=== PATIENT | male | born 1970 | race Caucasian/White ===

== ENCOUNTER → 2016-11-07 | Outpatient (CLI) | payer BC ==
--- NOTE | 2016-11-08 07:56 | US ---
EXAMINATION TYPE: US thyroid st tissue head/neck DATE OF EXAM: 11/07/2016 6:05 PM COMPARISON: NONE CLINICAL HISTORY: Dysphagia R47.02 Neck pain M54.2. Dysphagia. Patient states having a family hx of enlarged thyroids GLAND SIZE: Right Lobe: 4.5 x 1.6 x 1.0 cm Overall Parenchyma: homogenous Left Lobe: 4.8 x 1.6 x 1.3 cm Overall Parenchyma: homogeneous Isthmus Thickness: 0.2 cm NODULES RIGHT: # of nodules measured on right: 0 LEFT: # of nodules measured on left: 0 ISTHMUS: # of nodules measured in the isthmus: 0 Bilateral neck scanned, no evidence of lymphadenopathy. No nodules seen bilaterally IMPRESSION: No distinct abnormality identified.
== END | disposition home or self-care (01) ==
LOC: RADUSMAIN 17:37
PROVIDERS: ATTEND Family Medicine
DX: M54.2 Cervicalgia (principal); R47.02 Dysphasia
CPT/HCPCS: 76536

== ENCOUNTER → 2020-10-19 | Outpatient (CLI) | payer BC ==
--- NOTE | 2020-10-19 12:59 | XR ---
EXAMINATION TYPE: XR chest 2V DATE OF EXAM: 10/19/2020 COMPARISON: NONE TECHNIQUE: PA and lateral views submitted. HISTORY: Pulmonary fibrosis FINDINGS: The lungs are clear and there is no pneumothorax, pleural effusion, or focal pneumonia. Heart size normal. No overt failure. Biapical pleural thickening. Chronic left navicular deformity. IMPRESSION: 1. No acute process.
== END | disposition home or self-care (01) ==
LOC: RADXRMAIN 12:46
PROVIDERS: ATTEND Family Medicine
DX: J84.10 Pulmonary fibrosis, unspecified (principal)
CPT/HCPCS: 71046

== ENCOUNTER 2020-12-29 09:31 | Day surgery (SDC) | payer BC ==
[2020-12-25 13:28] VITALS: BMI 25.1
[~2020-12-29 09:31] MED LIST: LACTATED RINGERS 1,000 ML IV SCH; LIDOCAINE 1% (10MG/ML) FOR IV START INTRADERMA PRN
[2020-12-29 10:40] VITALS: RESP 16; TEMP 97.9
[2020-12-29] MEDS ORDERED: PROPOFOL 10 MG/ML 20 ML VIAL IV ONE (11:08)
--- NOTE | 2020-12-29 11:10 | P.GSHP ---
History of Present Illness H&P Date: 12/29/20 Chief Complaint: screening Patient here today for colonoscopy. He has not had 1 previously. No bowel related complaints. No family history of colon cancer. Past Medical History Past Medical History: Asthma, Hypertension Additional Past Medical History / Comment(s): Asthma as child. History of Any Multi-Drug Resistant Organisms: None Reported Additional Past Surgical History / Comment(s): wisdom teeth as teen Past Anesthesia/Blood Transfusion Reactions: No Reported Reaction Smoking Status: Never smoker - Past Family History Mother Family Medical History: Cancer Additional Family Medical History / Comment(s): basal cell cancers Medications and Allergies Home Medications Medication Instructions Recorded Confirmed Type Hydrochlorothiazide 12.5 mg PO DAILY 12/25/20 12/29/20 History [hydroCHLOROthiazide] Loratadine [Claritin] 10 mg PO DAILY PRN 12/25/20 12/29/20 History Losartan Potassium [Cozaar] 100 mg PO DAILY 12/25/20 12/29/20 History Allergies Allergy/AdvReac Type Severity Reaction Status Date / Time No Known Allergies Allergy Verified 12/29/20 10:28 Surgical - Exam Vital Signs Temp Pulse Resp BP Pulse Ox 97.9 F 56 L 16 154/81 99 12/29/20 10:25 12/29/20 10:25 12/29/20 10:25 12/29/20 10:25 12/29/20 10:25 Physical exam: General: Well-developed, well-nourished HEENT: Normocephalic, sclerae nonicteric Abdomen: Nontender, nondistended Extremities: No edema Neuro: Alert and oriented Assessment and Plan (1) Colon cancer screening Narrative/Plan: Will proceed with colonoscopy Current Visit: Yes Status: Acute Code(s): Z12.11 - ENCOUNTER FOR SCREENING FOR MALIGNANT NEOPLASM OF COLON SNOMED Code(s): 555211493
--- NOTE | 2020-12-29 11:25 | P.PCN ---
Date of Procedure: 12/29/20 Procedure(s) Performed: PREOPERATIVE DIAGNOSIS: Colon cancer screening POSTOPERATIVE DIAGNOSIS: Normal exam PROCEDURE: Colonoscopy ANESTHESIA: MAC SURGEON: Kyle Walker M.D. SPECIMENS: None ENDOSCOPIC PROCEDURE: The patient was placed on the endoscopy table in the left decubitus position. The Olympus colonoscope was inserted into the anus and passed under direct visualization to the base of the cecum. The appendiceal orifice was visualized. From that point the scope was slowly withdrawn inspecti ng all surfaces carefully. There were no neoplastic inflammatory or polypoid lesions throughout the cecum, ascending, transverse, descending, sigmoid and rectum. There was no visible diverticulosis noted. Digital rectal examination was normal. The patient was taken to the recovery room in stable condition per anesthesia guidelines. RECOMMENDATIONS: Resume diet. Follow-up colonoscopy 10 years.
[2020-12-29 11:52] VITALS: BP 123/80; PULSE 55
== END 2020-12-29 12:32 | disposition home or self-care (01) ==
LOC: ORWHC2ENDO 09:31
PROVIDERS: ATTEND Surgery
DX: Z12.11 Encounter for screening for malignant neoplasm of colon (principal); J45.909 Unspecified asthma, uncomplicated; I10 Essential (primary) hypertension; Z79.899 Other long term (current) drug therapy
CPT/HCPCS: J2704; G0121

== ENCOUNTER → 2021-11-30 | Outpatient (CLI) | payer BC ==
--- NOTE | 2021-11-30 13:26 | XR ---
EXAMINATION TYPE: XR elbow complete LT DATE OF EXAM: 11/30/2021 COMPARISON: NONE HISTORY: Pain FINDINGS: Three views of the elbow demonstrate no pathologic joint effusion. The osseous structures are intact . There is no acute fracture or dislocation. IMPRESSION: 1. No acute fracture or dislocation. If symptoms persist follow-up study in 7 to 10 days could be ob tained.
== END | disposition home or self-care (01) ==
LOC: RADXRMAIN 12:46
PROVIDERS: ATTEND Family Medicine
DX: M25.522 Pain in left elbow (principal)

== ENCOUNTER → 2023-04-03 | Outpatient (CLI) | payer BC ==
--- NOTE | 2023-04-03 08:45 | XR ---
EXAMINATION TYPE: XR Hip Complete LT DATE OF EXAM: 04/03/2023 7:32 AM INDICATION: Patient age:Male; 52 years old; Reason for study: R52; PHH. COMPARISON: None. TECHNIQUE: The left hip was examined in the frontal and lateral projections . FINDINGS: No evidence of any acute osseous pathology, joint dislocation, or soft tissue swelling. No significant joint space narrowing or marginal spurring. Benign-appearing sclerotic 1 cm lesion within the left iliac bone likely representing a benign bone island. IMPRESSION: No acute osseous pathology.
[2023-04-03 13:59] LABS: Basophils # (A) 0.07 X 10*3/uL (0.00-0.10); Basophils % (A) 1.3 %; Eosinophils # (A) 0.27 X 10*3/uL (0.04-0.35); Eosinophils % (A) 5.1 %; HCT 42.5 % (39.6-50.0); HGB 14.3 d/dL (13.0-17.0); Lymphocytes # (A) 1.68 X 10*3/uL (0.90-5.00); Lymphocytes % (A) 31.9 %; MCH 31.2 pg (27.0-32.0); MCHC 33.6 d/dL (32.0-37.0); MCV 92.6 FL (80.0-97.0); Mean Platelet Volume 10.5 FL (9.5-12.2); Monocytes % (A) 7.6 %; NRBC Per 100 WBC 0 X 10*3/uL (0.00-0.01); Neutrophils # (A) 2.83 X 10*3/uL (1.80-7.70); Neutrophils % (A) 53.9 %; Platelet Count 258 X 10*3/uL (140-440); RBC 4.59 X 10*6/uL (4.40-5.60); RDW 11.9 % (11.5-14.5); WBC 5.26 X 10*3/uL (4.50-10.00)
[2023-04-03 14:47] LABS: ALT 32 U/L (10-49); AST 25 U/L (14-35); Albumin 4.8 d/dL (3.8-4.9); Albumin/Globulin Ratio 2.18 Ratio (1.60-3.17); Alkaline Phosphatase 64 U/L (41-126); BUN/Creat Ratio 17.78 Ratio (12.00-20.00); C Reactive Protein <0.30 mg/dL (0.00-0.80); Calcium 9.4 mg/dL (8.7-10.3); Carbon Dioxide 24.3 mmol/L (21.6-31.8); Chloride 103 mmol/L (96-109); Chol/HDL Ratio 3.96 Ratio; Globulin 2.2 d/dL (1.6-3.3); Glucose 96 mg/dL (70-110); LDL Cholesterol,Calculated 136.5 mg/dL (0.0-131.0); Potassium 4.2 mmol/L (3.5-5.5); Rheumatoid Factor, Qnt <15 IU/mL (0-15); Sodium 139 mmol/L (135-145); T4, Free (Free Thyroxine) 1.21 ng/dL (0.80-1.80); Total Bilirubin 0.6 mg/dL (0.3-1.2)
[2023-04-03 15:04] LABS: Erythrocyte Sedimentation Rate 3 mm/Hr (0-20)
== END | disposition home or self-care (01) ==
LOC: LABWHC1 07:15
PROVIDERS: ATTEND Family Medicine
DX: Z00.00 Encounter for general adult medical examination without abnormal findings (principal); I10 Essential (primary) hypertension; M13.0 Polyarthritis, unspecified; M25.552 Pain in left hip
CPT/HCPCS: 36415; 73502; 80053; 80061; 83036; 83735; 84153; 84439; 84443; 85025; 85652; 86038; 86140; 86431

== ENCOUNTER → 2023-07-25 | Outpatient (CLI) | payer BC ==
--- NOTE | 2023-08-07 01:08 | SLS ---
SLEEP STUDY This is a home sleep study. 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 The patient has chronic loud snoring and he has been noted to stop his breathing on multiple occasions in the middle of the night. This has been noted by the . He has issues with some chronic fatigue and some occasional sleepiness. His [place] score is at 12. While at work, he is fully functional. However, while at rest he can fall asleep. He has noted increased snoring and this has been confirmed by the . The patient has been evaluated in the past and he has undergone a sleep study back in 2013 and the results were negative. He is coming in for a reevaluation. PERTINENT PHYSICAL FINDINGS: This patient has a weight of 118, height is 5 feet 11 inches, and BMI is 25.1. TECHNICAL DESCRIPTION: The [employer] system was used to complete the home sleep study. This is a type 3 home sleep study. The total recording duration was 8 hours and 15 minutes. The study started at 9:25 p.m. and the study ended at 5:43 a.m. There was more than 8 hours of flow on oxygen saturation monitoring. RESULTS: Respiratory analysis showed a total of 9 obstructive apneas and 40 obstructive hypopneas. The resulting apnea-hypopnea index was 6.1 consistent with very mild disease. OXYGENATION ANALYSIS: No major desaturations encountered. The patient managed to maintain a pulse ox above 90% throughout the sleep study. Average pulse ox was 93%. The baseline pulse ox when the patient was awake was 98%. Time below 89% of oxygen saturation was 1 minute. CARDIAC SUMMARY: Average heart rate was 57, minimum heart rate was 48, maximum heart rate was 99. IMPRESSION: 1. Mild obstructive sleep apnea with an AHI of 6.1. No associated nocturnal oxygen desaturation. 2. Chronic hypersomnia, [place] score of 12. PLAN: No immediate need for CPAP therapy. My overall clinical suspicion for symptomatic obstructive sleep apnea was low and a home sleep study showed vitalized component of ENRIQUE. We discussed treatment options including conservative measures of losing some weight, maintaining good sleep hygiene measures, sleeping on the side and avoiding alcohol consumption at least 3 hours prior to going to bed. The patient may also utilize an oral appliance. He has tried that option in the past and he encountered some jaw discomfort and pain while using the appliance and ended up quitting the treatment. Obviously, if he is very much seriously asking about CPAP therapy, this is an option for him. However, I think that his disease severity is very mild for a CPAP machine. I will run this by the patient and discuss the various treatment options and final decision will be made accordingly. OCTAVIO / DEV: [id number] /
== END ==
LOC: 3 N SLEEP 16:23
PROVIDERS: ATTEND Internal Medicine Critical Care Medicine
DX: G47.33 Obstructive sleep apnea (adult) (pediatric) (principal); G47.10 Hypersomnia, unspecified